=== PATIENT | male | born 1950 | race Caucasian/White ===

== ENCOUNTER 2020-03-20 10:51 | Outpatient (CLI) | payer MEDICARE, MEDICAID, SELFPAY ==
--- NOTE | 2020-03-20 11:07 | FL_ITS ---
WS: [id number] MODIFIED BARIUM SWALLOW TECHNIQUE: Modified barium swallow with speech therapy using multiple consistencies. FLUOROSCOPY TIME: 2.4 minutes. CLINICAL INFORMATION: Other dysphagia COMPARISON: None. FINDINGS: Multiple consistencies utilized. No evidence of aspiration/penetration. Delayed oropharyngeal phase w ith some pooling in the vallecula. This cleared with additional swallows. No difficulties with barium tablet. FL/FL barium swallow modifd [id number] IMPRESSION: 1. No evidence of aspiration or penetration. 2. Pooling in the vallecula which cleared with additional swallows.
== END 2020-03-20 10:52 | disposition home or self-care (01) ==
PROVIDERS: Visit Provider Specialist
DX: R13.19 Other dysphagia (principal)
CPT/HCPCS: 74230; 92611

== ENCOUNTER 2020-04-03 09:13 | Outpatient (CLI) | payer MEDICARE, MEDICAID, SELFPAY ==
--- NOTE | 2020-04-03 09:19 | CT_ITS ---
WS: [id number] CT NECK TECHNIQUE: Contrast-enhanced CT of the neck with coronal and sagittal reformatted images. CLINICAL INFORMATION: DYSPHAGIA COMPARISON: None. DLP: 806.[address] scans at [facility] use at least one of these dose optimization techniques: automat ed exposure control; mA and/or kV adjustment per patient size (includes targeted exams where dose is matched to clinical indication); or iterative reconstruction. FINDINGS: Parotid glands are normal. Normal submandibular glands. Tongue base appears normal. Some images degra ded by dental artifact. No evidence of supraglottic or glottic mass. Normal vallecula and piriform si nuses. Normal vocal cords. Subglottic airway is normal. Paranasal sinuses and mastoid air cells well aerated. Lung apices are normal. Mild carotid bulb calci fication right greater than left. Partially visualized intracranial contents are normal. No cervical lymphadenopathy. Normal prevertebral soft tissues. Moderate spondylitic changes cervical spine with a nterior hypertrophic spurring worse at C4-C6. Mild central canal stenosis C5-C6 and C6-C7. CT/CT neck w con* [id number] IMPRESSION: 1. No cervical lymphadenopathy. 2. Normal salivary glands. 3. No evidence of supraglottic or glottic mass. 4. Moderate spondylitic changes cervical spine with anterior hypertrophic laureano ges C4-C6. Mild central canal stenosis C5-C6 and C6-C7.
--- NOTE | 2020-04-03 09:19 | FL_ITS ---
WS: [id number] ESOPHAGRAM TECHNIQUE: Double contrast examination was performed with thin and thick barium. Upright and AVALOS imag es were obtained. CLINICAL INFORMATION: DYSPHAGIA COMPARISON: None. FINDINGS: Swallowing: Normal oropharyngeal phase. Small amount of aspiration visualized on the initial imaging below the level of the true cords. This was due to delayed emptying with reflux and aspiration. This elicited a cough clearance. No other evidence of aspiration penetration during the remainder of the s tudy. Esophagus: Moderate esophageal dysmotility with delayed emptying. Esophagitis distal esophagus with g astritis in the proximal stomach. Decreased esophageal contractility. Reflux is visualized to the hyp opharynx on the upright and supine imaging Gastroesophageal reflux: Present, described above. No significant hiatal hernia. Fluoroscopy time: 3.3 minutes. FL/FL barium swallow [id number] IMPRESSION: 1. Prominent reflux esophagitis and gastritis. 2. Moderate esophageal dysmotility with decreased contractility and delayed em ptying. 3. Standing column of contrast in the esophagus on the upright and supine imag ing with reflux and aspiration described above. 4. No difficulties with barium tablet. 5. No significant hiatal hernia.
[2020-04-03 09:40] LABS: Blood Urea Nitrogen 19 mg/dL (8-23); Glomerular Filtration Rate 133.2 mL/min (90-130)
[2020-04-03] MEDS: iohexol 300 mg/mL 100 mL Btl IV (10:00)
== END 2020-04-03 09:14 | disposition home or self-care (01) ==
PROVIDERS: Visit Provider Specialist
DX: R13.10 Dysphagia, unspecified (principal)
CPT/HCPCS: 36415; 70491; 74220; 82565; 84520

== ENCOUNTER → 2020-04-19 11:55 | Outpatient (BNVA) | payer MEDICARE, MEDICAID, SELFPAY | PROVIDERS: Visit Provider Nurse Practitioner Family | DX: Q99.8 Other specified chromosome abnormalities (principal); Z13.6 Encounter for screening for cardiovascular disorders; Z79.899 Other long term (current) drug therapy | CPT/HCPCS: 80053; 80061; 81003; 82552; 83036; 83735; 84100 ==

== ENCOUNTER 2020-04-22 11:46 | Outpatient (CLI) | payer MEDICARE, MEDICAID, SELFPAY ==
--- NOTE | 2020-04-22 12:50 | ECG_ITS ---
[facility] Test Date: 2020-04-22 Pat Name: Wali Garcia Department: Room: Gender: Male Funeral Planner: : 1950 Requested By: Juanjose Potter Order Number: [id number] Greg MD: Areli Flores M.D. Measurements Intervals [place] Rate: 60 P: 40 FL: 167 QRS: -15 QRSD: 108 T: 9 QT: 396 QTc: 398 Interpretive Statements SINUS RHYTHM VOLTAGE CRITERIA FOR LVH [MEETS CRITERIA IN ONE OF: R(aVL), S(V1), R(V5), R(V5/V6)+S(V1)] No previous ECG available for comparison Electronically Signed On 04-22-2020 20:52:20 CDT by Areli Flores M.D. [id number]
[2020-04-22 12:56] LABS: Basophils # 0.1 10^3/uL (0.0-0.1); Basophils % 0.8 %; Eosinophils # 0.1 10^3/uL (0.0-0.8); Hematocrit 41.6 % (42.0-52.0); Hemoglobin 13.4 g/dL (11.7-16.6); Lymphocytes # 1.7 10^3/uL (0.8-4.8); Lymphocytes % 28.4 %; Mean Corpuscular HGB Conc 32.2 g/dL (30.0-36.0); Mean Corpuscular Volume 96.3 fL (80-94); Monocytes # 0.8 10^3/uL (0.2-0.9); Monocytes % 13.6 %; Neutrophils # 3.23 10^3/uL (1.8-7.7); Neutrophils % 53.5 %; Nucleated Red Blood Cells % 0 %; Platelet Count 228 10^3/cmm (130-400); Red Blood Count 4.32 10^6/uL (4.1-5.3)
[2020-04-22 12:58] LABS: Anion Gap 13.5 (5-19); Blood Urea Nitrogen 15 mg/dL (8-23); Carbon Dioxide 29 mmol/L (22-29); Chloride 100 mmol/L (98-107); Glomerular Filtration Rate 133.2 mL/min (90-130); Glucose 97 mg/dL (65-115); Osmolality Calculated 282 mOsm/kg (285-295); Potassium 4.5 mmol/L (3.5-5.1); Sodium 138 mmol/L (136-145)
== END 2020-04-22 11:47 | disposition home or self-care (01) ==
LOC: RT 11:53
PROVIDERS: PCP Family Medicine; Visit Provider Specialist
DX: R13.10 Dysphagia, unspecified (principal)
CPT/HCPCS: 36415; 80048; 85025; 93005

== ENCOUNTER → 2020-05-09 15:22 | Outpatient (BNVA) | payer MEDICARE, MEDICAID, SELFPAY | PROVIDERS: PCP Family Medicine; Visit Provider Specialist | DX: Z11.59 Encounter for screening for other viral diseases (principal) | CPT/HCPCS: 87635 ==

== ENCOUNTER → 2020-05-13 16:04 | Outpatient (BNVA) | payer MEDICARE, MEDICAID, SELFPAY | PROVIDERS: Visit Provider Nurse Practitioner Family | DX: Q99.8 Other specified chromosome abnormalities (principal); Z13.6 Encounter for screening for cardiovascular disorders | CPT/HCPCS: 80053; 82552 ==

== ENCOUNTER 2020-05-14 08:56 | Day surgery (SDC) | payer MEDICARE, MEDICAID, SELFPAY ==
[2020-05-13 15:52] VITALS: BMI 24.4
[2020-05-14] VITALS (7 sets, daily range): BP systolic 142–182; BP diastolic 72–93; PULSE 66–79; RESP 14–21; TEMP 36.1–36.4; O2SAT 92–99
[2020-05-14] MEDS: sodium chloride 0.9% 1,000 ML 30 ML IV (09:41)
--- NOTE | 2020-05-14 10:05 | ANES.PREANE2 ---
Pre-Anesthetic Assessment Pre-Anesthetic Assessment: Height/Weight: Height 1.83 m Weight 81.647 kg Temp Pulse Resp BP Pulse Ox 97.5 F L 73 18 182/90 99 05/14/20 09:22 05/14/20 09:22 05/14/20 09:22 05/14/20 09:22 05/14/20 09:22 Preop Diagnosis: myositis Proposed Procedure: Operation Date: 05/14/20 10:15 Proposed Procedures p Direct Laryngoscopy(Not Applicable) - Juanjose Lehman MD s Esophagoscopy(Not Applicable) - Juanjose Lehman MD Familial anesthetic complications: none Was Beta Daniel taken within 24 hours: N/A Last intake: Intake Last Liquid Date 05/14/20 Last Liquid Time 00:00 Last Solid Date 05/13/20 Last Solid Time 22:00 Last Intake: 22:00 Social: Social History: No alcohol and No tobacco Exam: Pre-Anes Outpt Exam: alert, oriented x 3, clear to auscultation bilaterally and regular rate & rhythm Airway: Submandibular: WNL Cervical ROM: WNL MP: 2 Dentition: Full Pulmonary: Pulmonary: None reported CV/HEM: CV/HEM: None reported : : None reported Hepatic: Hepatic: None reported GI: GI: GERD (food related) Metabolic: Metabolic: None reported Musc/skel: Musc/skel: Lower Back Pain and Weakness Neuropsych: Neuropsych: None reported Anesthetic Plan: ASA status: 2 Anesthesia: Anesthesia Evaluation and General Risk of > 500 ml blood loss (7ml/kg in children): No Meds/Allergies Current Medications: Current Medications Generic Name Dose Route Start Last Admin Trade Name Freq PRN Reason Stop Dose Admin Sodium Chloride 1,000 mls @ 30 ml s/hr 05/14/20 09:30 05/14/20 09:41 Sodium Chloride 0.9% IV 05/15/20 09:29 30 mls/hr .Q24H HEMA Administration PFSH Anesthesia PFSH: Medical History (Updated 04/21/20 @ 16:36 by DANYEL Enrique) Myositis associated antibody positive Right knee pain Surgical History (Updated 04/19/20 @ 10:56 by DANYEL Enrique) History of right knee surgery 2015 Data Anesthesia Cardiac Studies: No Data to Display
--- NOTE | 2020-05-14 10:09 | W.PM.OPSUD ---
Surgery/Procedure H&P Update DATE OF PROCEDURE: May 14, 2020 DATE H&P PERFORMED: 05/10/20 H&P UPDATE INFORMATION: I have reviewed H&P completed within last 30 days, I have examined patient prior to procedure and No changes to prior documentation PREOP DIAGNOSIS: Dysphagia PRIMARY INDICATION FOR PROCEDURE: Dysphagia PLANNED PROCEDURE: Operation Date: 05/14/20 10:15 Proposed Procedures p Direct Laryngoscopy(Not Applicable) - Juanjose Lehman MD s Esophagoscopy(Not Applicable) - Juanjose Lehman MD
--- NOTE | 2020-05-14 11:05 | PM.OP ---
Operative Report Date of procedure: May 14, 2020 Pre-op Diagnosis: Dysphagia Post-op diagnosis: same Post-op Findings: Chronic laryngitis Esophagitis Procedure Done: Microdirect laryngoscopy Flexible esophagoscopy with biopsy Implants: None Specimens removed/disposition: G-E junction biopsy Mid Esophageal biopsy Pathology: G-E junction biopsy Mid Esophageal biopsy Surgeon: Juanjose Lehman Food Production Manager: Alix Christy Anesthesia: General Estimated blood loss (mL): 0 IV fluids (mL): 400 Complications: None Findings: Chronic Laryngitis with o/w normal laryngeal exam Esophagitis at the G-E junction with o/w normal esophageal exam to the cardia of the stomach Condition: stable Disposition: PACU Brief History: 69 yo wm with a h/o dermatomyositis and worsening dysphagia who presents for surgical evaluation and biopsy. Procedure: The patient was identified in the preoperative holding area and was taken to the operating where he was placed on the operating table in the supine position. Anesthesia was obtained with general endotracheal anesthesia, and the table was then turned 90 degrees to the patient's left. A Silastic tooth guard was placed on the patient's maxillary teeth, and the surgical laryngoscope was advanced down the right oral cavity gutter under direct vision until the larynx came into view. A systematic inspection was carried out of the patient's larynx, vallecula, base of tongue, epiglottis, aryepiglottic folds, false and true vocal cords, piriform sinuses, and postcricoid area. There were no obvious masses or lesions noted. Once this inspection was carried out, the flexible esophagoscope was advanced into the esophageal inlet and inspection was carried to the patient's esophagus to the cardia of the stomach. Biopsies were taken at the GE junction and midesophagus. Once this was accomplished, the esophagoscope was removed from the patient and the procedure was terminated. Control of the patient was returned to anesthesia where he underwent an uneventful reversal of anesthesia and extubation and was taken to the recovery room in stable condition. There were no operative or anesthetic complications.
--- NOTE | 2020-05-14 11:08 | SUR.PHASEI ---
1104 PATIENT TO PACU FROM OR. RR EVEN AND UNLABORED, C/O RIGHT HIP PAIN, CHRONIC.
--- NOTE | 2020-05-14 11:26 | SUR.PHASEI ---
1120 PATIENT TO OPS. NO DISTRESS. TOLERATING ICE CHIPS.
[2020-05-14] MEDS: HYDROcodone-APAP 7.5-325 mg/15 mL UDC PO (11:51)
--- NOTE | 2020-05-14 12:30 | ANE.PACU2 ---
Inpatient post-anesthesia follow up: Airway intact: Yes Vital signs: Temperature 97.4 F Pulse Rate 68 Respiratory Rate 18 Blood Pressure 142/75 Pulse Oximetry 92 Oxygen Delivery Me thod Room Air Oxygen Flow Rate 8 Fraction of Inspir ed Oxygen Hydration adequate: Yes Nausea and vomiting: No Pain level: 1 Mental status: Baseline
== END 2020-05-14 12:30 | disposition home or self-care (01) ==
PROVIDERS: Visit Provider Specialist
PROC: 0CJS8ZZ Inspection of Larynx, Via Natural or Artificial Opening Endoscopic (ICD-10-PCS; CPT 31526; principal; 2020-05-14 10:15)
PROC: 0DJ08ZZ Inspection of Upper Intestinal Tract, Via Natural or Artificial Opening Endoscopic (ICD-10-PCS; CPT 31526; 2020-05-14 10:15)
DX: R13.10 Dysphagia, unspecified (principal); J37.0 Chronic laryngitis; K21.9 Gastro-esophageal reflux disease without esophagitis
CPT/HCPCS: 31526; 43202; 12345; 88305; J1100; J2405; J2704; J3010; J3490; J7030

== ENCOUNTER → 2020-06-04 12:11 | Outpatient (BNVA) | payer MEDICARE, MEDICAID, SELFPAY | PROVIDERS: Visit Provider Nurse Practitioner Family | DX: Q99.8 Other specified chromosome abnormalities (principal); Z20.828 Contact with and (suspected) exposure to other viral communicable diseases | CPT/HCPCS: 80053; 82552; 87635 ==

== ENCOUNTER → 2020-06-18 08:37 | Outpatient (BNVA) | payer MEDICARE, MEDICAID, SELFPAY | PROVIDERS: Visit Provider Licensed Practical Nurse | DX: M50.90 Cervical disc disorder, unspecified, unspecified cervical region (principal); M54.5 Low back pain; M33.20 Polymyositis, organ involvement unspecified | CPT/HCPCS: 90686; 99212 ==

== ENCOUNTER 2020-06-26 09:00 | Outpatient (CLI) | payer MEDICARE, MEDICAID, SELFPAY ==
--- NOTE | 2020-06-26 09:10 | XR_ITS ---
WS: [id number] CERVICAL SPINE FLEXION EXTENSION TECHNIQUE: 3 views of the cervical spine: lateral neutral, flexion and extension views. CLINICAL INFORMATION: M50.90 - Cervical disc disorder, unspecified, unspecified cervical region COMPARISON: None. FINDINGS: Straightening of the normal cervical lordosis. Advanced spondylitic changes. Disc space narrowing wor se at C3-C4 C4-C5 C5-C6 and C6-C7. Anterior hypertrophic changes. No instability on flexion-extension . Slight retrolisthesis C3 on C4 and C4 on C5. Disc space narrowing worse at C4-C5 and C5-C6. Posterior elements are normal. No other significant findings. XR/XR cervical spine fl/ex [id number] IMPRESSION: 1. Advanced spondylitic changes worse in the mid cervical spine with disc spac e narrowing at C4-C6. 2. No instability on flexion extension.
--- NOTE | 2020-06-26 09:10 | XR_ITS ---
WS: [id number] LUMBAR SPINE FLEXION AND EXTENSION TECHNIQUE: 3 views of the lumbar spine: Lateral neutral, flexion, and extension views. CLINICAL INFORMATION: M54.5 - Low back pain COMPARISON: None. FINDINGS: Osteopenia. Advanced spondylitic changes. Disc space narrowing throughout the lumbar spine. Vacuum di sc phenomenon L3-4. Anterior hypertrophic changes L3-L5. Aortic calcification. Moderate facet arthrop athy L4-L5 and L5-S1. No instability on flexion extension. XR/XR lumbar spine f/e only [id number] IMPRESSION: 1. Osteopenia with advanced spondylitic changes. 2. No instability flexion-extension. 3. Disc space narrowing worse at L3-L4 L4-L5 and L5-S1. Vacuum disc phenomenon L3-4. 4. Moderate to advanced facet arthropathy in the lower lumbar spine.
--- NOTE | 2020-06-26 09:30 | MR_ITS ---
WS: [id number] MRI LUMBAR SPINE NONCONTRAST TECHNIQUE: Sagittal T1, T2 and STIR imaging. Axial T1 and T2 imaging. CLINICAL INFORMATION: M54.5 - Low back pain COMPARISON: None. FINDINGS: Mild lumbar curve. No acute compression. No high-grade central canal stenosis. Mild disc bulging thro ughout the lumbar spine. L1-L2: Left subarticular disc protrusion impinges the left subarticular recess and traversing left L2 nerve root. Mild central canal stenosis. Mild left proximal foraminal narrowing. Right foramen is pa tent. Mild facet arthropathy. L2-L3:Mild disc bulging with mild central canal stenosis. Narrowing of the subarticular recess bilate rally. Mild facet arthropathy. Mild right foraminal narrowing. Left foramen is patent. L3-L4: Mild disc bulging with mild central canal stenosis. Mild facet arthropathy. Moderate left and mild right foraminal narrowing. Moderate facet arthropathy. L4-L5: Disc osteophyte complex with endplate ridging. Mild central canal stenosis. Impingement on the right greater than left subarticular recess and traversing L5 nerve roots. Moderate facet arthropath y. Mild right and no significant left foraminal narrowing. L5-S1: Shallow central disc osteophyte protrusion with slight impingement traversing S1 nerve roots b ilaterally. Spinal canal is patent. Mild right greater than left foraminal narrowing Visualized pelvic bony structures: Normal. Paravertebral soft tissues: Normal. MR/MR lumbar spine wo con* [id number] IMPRESSION: 1. Mild lumbar curve. No acute compression. 2. Left subarticular disc protrusion L1-2 impinges the traversing left L2 nerv e root in the subarticular recess. Mild central canal stenosis. Mild left proxi mal foraminal narrowing at this level. 3. Mild central canal stenosis L2-L3, L3-L4 and L4-L5 due to disc osteophyte c omplexes. 4. Mild central canal stenosis L4-5 with impingement traversing right L5 nerve root in the subarticular recess. Moderate right foraminal narrowing at this le dinorah. 5. Shallow central disc protrusion L5-S1 slightly contacts the traversing left greater than right S1 nerve roots. 6. Mild to moderate bony foraminal narrowing worse at right L2-3, left L3-4, r ight L4-5, and right greater than left L5-S1.
--- NOTE | 2020-06-26 10:15 | MR_ITS ---
WS: [id number] MRI CERVICAL SPINE NONCONTRAST TECHNIQUE: Sagittal T1, T2 and STIR imaging. Axial T2, gradient, and fiesta imaging. CLINICAL INFORMATION: M50.90 - Cervical disc disorder, unspecified, unspecified cervical region COMPARISON: None. FINDINGS: Straightening of the normal cervical lordosis. Moderate spondylitic changes. Disc osteophyte complexe s worse at C3-C4 C4-C5 and C5-C6. Cord signal is normal. C2-C3: Normal. C3-C4: Disc osteophyte complexes with endplate ridging. Mild central canal stenosis. Moderate left an d mild right bony foraminal narrowing. Disc osteophyte complex with endplate ridging. Mild central ca nal stenosis with small left pericentral disc osteophyte protrusion. C4-C5: Moderate facet arthropathy. Moderate bilateral bony foraminal narrowing. C5-C6: Disc osteophyte complex with endplate ridging. Slight indentation on cervical cord with modera te central canal stenosis. Severe left and moderate right bony foraminal narrowing. C6-C7: Disc osteophyte complex with endplate ridging. Mild central canal stenosis. Moderate left grea ter than right bony foraminal narrowing. C7-T1: Normal. Visualized brain stem structures: Normal. Prevertebral soft tissues: Normal. MR/MR cervical spin wo con* [id number] IMPRESSION: 1. Straightening of the normal cervical lordosis with moderate spondylitic gagan nges. 2. Mild to moderate central canal stenosis C3-C4 C4-C5 C5-C6 and C6-C7 due to disc osteophyte complexes. This is worse at C5-C6 with moderate central canal s tenosis and slight indentation on cervical cord. 3. Multilevel bony foraminal narrowing worse at left C4-C5, bilateral C5-C6 wo rse in the left, and left C6-C7.
== END 2020-06-26 09:01 | disposition home or self-care (01) ==
LOC: RADWPI 09:06
PROVIDERS: Visit Provider Licensed Practical Nurse
DX: M50.90 Cervical disc disorder, unspecified, unspecified cervical region (principal); M48.02 Spinal stenosis, cervical region; M51.26 Other intervertebral disc displacement, lumbar region; M48.061 Spinal stenosis, lumbar region without neurogenic claudication; M85.88 Other specified disorders of bone density and structure, other site; M47.816 Spondylosis without myelopathy or radiculopathy, lumbar region
CPT/HCPCS: 72040; 72120; 72141; 72148

== ENCOUNTER → 2020-10-22 09:28 | Outpatient (BNVA) | payer MEDICARE, MEDICAID, SELFPAY | PROVIDERS: Visit Provider Family Medicine | DX: T84.59XA Infection and inflammatory reaction due to other internal joint prosthesis, initial encounter (principal); Z96.659 Presence of unspecified artificial knee joint; M33.20 Polymyositis, organ involvement unspecified | CPT/HCPCS: 73562; 80053; 85025; 86140 ==

== ENCOUNTER → 2020-10-25 13:16 | Outpatient (BNVA) | payer MEDICARE, MEDICAID, SELFPAY | PROVIDERS: PCP Family Medicine; Visit Provider Family Medicine | DX: M47.818 Spondylosis without myelopathy or radiculopathy, sacral and sacrococcygeal region (principal) | CPT/HCPCS: 82550; 82552 ==

== ENCOUNTER → 2021-02-05 09:51 | Outpatient (BNVA) | payer MEDICARE, MEDICAID, SELFPAY | PROVIDERS: PCP Family Medicine; Visit Provider Nurse Practitioner Family | DX: Z13.6 Encounter for screening for cardiovascular disorders (principal); Z79.899 Other long term (current) drug therapy; R53.83 Other fatigue; Z12.11 Encounter for screening for malignant neoplasm of colon; E55.9 Vitamin D deficiency, unspecified; Z98.890 Other specified postprocedural states; Z12.5 Encounter for screening for malignant neoplasm of prostate; M33.20 Polymyositis, organ involvement unspecified; R25.2 Cramp and spasm | CPT/HCPCS: 80053; 80061; 81003; 82150; 82306; 82550; 82552; 82728; 83036; 83550; 83690; 83735; 84443; 85025; G0103 ==

== ENCOUNTER → 2021-03-03 10:18 | Outpatient (BNVA) | payer MEDICARE, MEDICAID, SELFPAY | PROVIDERS: PCP Family Medicine; Visit Provider Nurse Practitioner Family | DX: M33.20 Polymyositis, organ involvement unspecified (principal) | CPT/HCPCS: 80053; 82550; 85025 ==

== ENCOUNTER → 2021-04-07 11:37 | Outpatient (BNVA) | payer MEDICARE, MEDICAID, SELFPAY | PROVIDERS: PCP Family Medicine; Visit Provider Nurse Practitioner Family | DX: I10 Essential (primary) hypertension (principal); M33.20 Polymyositis, organ involvement unspecified; Q99.8 Other specified chromosome abnormalities; R53.83 Other fatigue | CPT/HCPCS: 80053; 82550; 82552; 85025 ==

== ENCOUNTER → 2021-05-15 11:35 | Outpatient (BNVA) | payer MEDICARE, MEDICAID, SELFPAY | PROVIDERS: PCP Family Medicine; Visit Provider Nurse Practitioner Family | DX: M33.20 Polymyositis, organ involvement unspecified (principal) | CPT/HCPCS: 80053; 82550; 82552; 85025 ==